=== PATIENT | female | born 1995 | race African-American/Black ===

== ENCOUNTER 2017-09-20 11:55 | Emergency (ER) | payer OTHER ==
[~2017-09-20] VITALS: Ht 157.5 cm; Wt 55.9 kg
[2017-09-20 12:06] VITALS: BP 126/80
== END 2017-09-20 13:34 | disposition home or self-care (01) ==
LOC: EMS 11:57
DX: J06.9 Acute upper respiratory infection, unspecified (principal); Z88.0 Allergy status to penicillin; Z91.013 Allergy to seafood
CPT/HCPCS: 99282